=== PATIENT | male | born 1990 | race Caucasian/White ===

== ENCOUNTER 2020-06-03 15:33 | Emergency (ER) | payer BC ==
--- NOTE | 2020-06-03 15:57 | EDM.PDOC ---
ED HPI GENERAL MEDICAL PROBLEM - General Chief Complaint: General Stated Complaint: ABDOMINAL PAIN/APPENDICITIS? Time Seen by Provider: 06/03/20 15:41 Source of Information: Reports: Patient History Limitations: Reports: No Limitations - History of Present Illness INITIAL COMMENTS - FREE TEXT/NARRATIVE: Patient presents with RLQ abdominal pain that started about 6-7 hours ago. He hasn't eaten anything today. Hasn't really been hungry but about an hour ago did feel a little hungry. A little nausea but no vomiting. No watery diarrhea but has had 5 soft stools today which is abnormal compared to his normal 1/day. He felt fine yesterday. - Related Data Allergies Allergy/AdvReac Type Severity Reaction Status Date / Time cefaclor [From Ceclor] Allergy Hives Verified 10/05/14 10:38 Home Meds: Home Meds Aspirin [Halfprin] 81 mg PO DAILY 06/03/20 [History] Metoprolol Succinate 100 mg PO DAILY 06/03/20 [History] Warfarin [Coumadin] 10 mg PO ASDIRECTED 06/03/20 [History] Warfarin [Coumadin] 12.5 mg PO ASDIRECTED 06/03/20 [History] lisinopriL [Lisinopril] 10 mg PO DAILY 06/03/20 [History] Social & Family History - Living Situation & Occupation Living situation: Reports: with Significant Other Occupation: Employed ED ROS GENERAL - Review of Systems Review Of Systems: See Below Constitutional: Denies: Fever, Chills, Malaise, Weakness HEENT: Denies: Ear Pain, Throat Pain, Vision Change Respiratory: Denies: Shortness of Breath, Cough Cardiovascular: Denies: Chest Pain, Lightheadedness, Syncope GI/Abdominal: Reports: Abdominal Pain, Nausea. Denies: Black Stool, Bloody Stool, Constipation, Diarrhea, Vomiting : Denies: Dysuria, Flank Pain Musculoskeletal: Denies: Neck Pain, Shoulder Pain, Arm Pain, Back Pain, Hand Pain Skin: Denies: Cyanosis, Jaundice, Mottled, Pallor, Diaphoresis Neurological: Denies: Confusion, Dizziness, Seizure, Syncope, Trouble Speaking, Difficulty Walking Psychiatric: Denies: Agitation, Anxiety, Confusion ED EXAM, GI/ABD - Physical Exam Exam: See Below Exam Limited By: No Limitations General Appearance: Alert, WD/WN, No Apparent Distress Eyes: Bilateral: Normal Appearance, EOMI Ears: Normal External Exam, Hearing Grossly Normal Nose: Normal Inspection, No Blood Throat/Mouth: Normal Inspection, Normal Lips, Normal Voice, No Airway Compromise Head: Atraumatic, Normocephalic Neck: Normal Inspection, Full Range of Motion Respiratory/Chest: No Respiratory Distress, Lungs Clear, Normal Breath Sounds Cardiovascular: Regular Rate, Rhythm, 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 No: Distended, Rigid Back Exam: Normal Inspection, Full Range of Motion. No: CVA Tenderness (L), CVA Tenderness (R) Extremities: Normal Inspection, Normal Range of Motion Neurological: Alert, Oriented, Normal Cognition, No Motor/Sensory Deficits Psychiatric: Normal Affect, Normal Mood Skin Exam: Warm, Dry, Intact, Normal Color, No Rash Course - Vital Signs Last Recorded V/S: Last Vital Signs Temp 102 F H 06/03/20 18:56 Pulse 86 06/03/20 18:56 Resp 20 06/03/20 18:56 BP 123/57 L 06/03/20 18:56 Pulse Ox 98 06/03/20 18:56 - Orders/Labs/Meds Labs: Laboratory Tests 06/03/20 06/03/20 06/03/20 Range/Units 15:46 15:46 16:00 WBC 17.38 H (5.00-10.00) 10^3/uL RBC 5.22 (4.50-6.00) 10^6/uL Hgb 14.8 (13.0-17.0) g/dL Hct 44.3 (40.0-52.0) % MCV 84.9 (82.0-92.0) fL MCH 28.4 (27.0-31.0) pg MCHC 33.4 (32.0-36.0) g/dL RDW 13.8 (11.5-14.5) % Plt Count 318 (150-400) 10^3/uL MPV 10.6 H (7.4-10.4) fL Immature Gran % (Auto) 0.3 (0.0-5.0) % Neut % (Auto) 82.4 H (50.0-70.0) % Lymph % (Auto) 9.8 L (20.0-40.0) % [place] % (Auto) 7.0 (2.0-8.0) % Eos % (Auto) 0.2 L (1.0-3.0) % Baso % (Auto) 0.3 (0.0-1.0) % Neut # (Auto) 14.32 H (2.50-7.00) 10^3/uL Lymph # (Auto) 1.71 (1.00-4.00) 10^3/uL [place] # (Auto) 1.21 H (0.10-0.80) 10^3/uL Eos # (Auto) 0.03 L (0.10-0.30) 10^3/uL Baso # (Auto) 0.06 (0.00-0.10) 10^3/uL Immature Gran # (Auto) 0.05 (0.00-0.50) 10^3/uL Sodium 137 (136-145) mmol/L Potassium 4.2 (3.3-5.3) mmol/L Chloride 102 (98-115) mmol/L Carbon Dioxide 27.3 (21.0-32.0) mmol/L Anion Gap 11.9 (5-15) mmol/L BUN 10 (6-25) mg/dL Creatinine 0.67 (0.51-1.17) mg/dL Est Cr Clr Drug Dosing 155.97 mL/min Estimated GFR (MDRD) > 60 mL/min Glucose 105 H (75 - 99) mg/dL Calcium 8.7 (8.7-10.3) mg/dL Total Bilirubin 0.6 (0.2-1.0) mg/dL AST 32 (15-37) U/L ALT 28 (12-78) U/L Alkaline Phosphatase 67 (46-116) IU/L Total Protein 7.9 (6.4-8.2) g/dL Albumin 4.19 (3.00-4.80) g/dL Lipase 67 L (73-393) U/L Specimen Type Urinvoid Urine Color Yellow (YELLOW) Urine Appearance Clear (CLEAR) Urine pH 6.0 (5.0-9.0) Ur Specific [place] 1.020 (1.005-1.030) Urine Protein Negative (NEGATIVE) mg/dL Urine Glucose (UA) Negative (NEGATIVE) mg/dL Urine Ketones Trace H (NEGATIVE) mg/dL Urine Occult Blood Trace-intact H (NEGATIVE) Urine Nitrite Negative (NEGATIVE) Urine Bilirubin Negative (NEGATIVE) Urine Urobilinogen 0.2 (0.2-1.0) E.U./dL Ur Leukocyte Esterase Negative (NEGATIVE) Urine RBC 0-5 (0-5) /HPF Urine WBC 0-5 (0-5) /HPF Ur Epithelial Cells Rare /LPF Urine Bacteria Few (NONE TO FEW) /HPF Meds: Medications Discontinued Medications Generic Name Dose Route Start Last Admin Trade Name Gastonq PRN Reason Stop Dose Admin Acetaminophen 1,000 mg 06/03/20 18:35 06/03/20 18:36 Tylenol Extra Strength PO 06/03/20 18:36 1,000 mg ONETIME ONE Administration Acetaminophen Confirm 06/03/20 18:35 06/03/20 18:46 Tylenol Extra Strength Administered 06/03/20 18:36 Not Given Dose 1,000 mg .ROUTE .STK-MED ONE Hydromorphone HCl 0.5 mg 06/03/20 17:55 06/03/20 18:04 Dilaudid IVPUSH 06/03/20 17:56 0.5 mg ONETIME ONE Administration Sodium Chloride 50 mls @ 200 mls/hr 06/03/20 16:15 06/03/20 18:12 Normal Saline IV 200 mls/hr ASDIRECTED ELISABETH Administration Piperacillin Sod/Tazobactam 100 mls @ 200 mls/hr 06/03/20 17:30 06/03/20 18:08 Sod 4.5 gm/ Sodium Chloride IV 06/03/20 17:59 200 mls/hr ONETIME ONE Administration Sodium Chloride Confirm 06/03/20 17:45 06/03/20 18:10 Normal Saline Administered 06/03/20 17:46 Not Given Dose 50 mls @ as directed .ROUTE .STK-MED ONE Iopamidol 100 ml 06/03/20 16:10 06/03/20 16:23 Isovue-370 (76%) IV 06/03/20 16:11 100 ml ONETIME ONE Administration - Re-Assessments/Exams Free Text/Narrative Re-Assessment/Exam: 06/03/20 17:36 WBC 17.4, CT shows acute uncomplicated appendicitis. Patient would like to go to [facility]. I discussed case with surgeon Dr. Trujillo who accepted for transfer. He advised dose of Zosyn and agreed that patient could come by private vehicle if we feel appropriate. Discussed findings and treatment plan with patient and he wants his to drive him up. Will give dose of Zosyn now. Will give 0.5 mg Dilaudid now as well. Patient stable. Departure - Departure Time of Disposition: 08:17 Disposition: DC/Tfer to Acute Hospital 02 Condition: Good Clinical Impression: Acute appendicitis, uncomplicated - Discharge Information Instructions: Appendicitis, Adult, [id number] Referrals: Anastasiia Muniz PA-C [Primary Care Provider] - Forms: ED Department Discharge Additional Instructions: Go directly to [facility] without eating or drinking anything.
[2020-06-03] MEDS ORDERED: Iopamidol 755 Mg/ML 100 ML Bottle IV ONE (16:10)
[2020-06-03 16:15] LABS: ANION GAP 11.9 mmol/L (5-15); CHLORIDE,CL 102 mmol/L (98-115); SODIUM,NA 137 mmol/L (136-145)
[2020-06-03] MEDS: Sodium Chloride 0.9% 50 ML IV SCH ×2 (16:23→18:12)
--- NOTE | 2020-06-03 16:50 | CT ---
[id number] CT/CT Abdomen Pelvis W IV EXAM: CT Abdomen Pelvis W IV CLINICAL DATA: RIGHT LOWER QUADRANT PAIN. COMPARISON STUDY: None. FINDINGS: Lung bases are clear. Liver, spleen, gallbladder, pancreas, adrenal glands, and kidneys are unremarkable. The appendix is dilated with edema of the wall measuring up to 0.9 cm. There is surrounding periappendiceal fat stranding. No fluid collection, free air or free fluid. A few scattered colonic diverticula. No evidence of acute diverticulitis. No lymphadenopathy, free fluid, or pneumoperitoneum. Scattered changes of spondylosis the spine. No fracture or osseous lesion. IMPRESSION: Acute uncomplicated appendicitis. Dylan Jacobs DO 06/03/20 [id number] Thank you for allowing us to participate in the care of your patient.
[2020-06-03] MEDS ORDERED: Piperacillin/Tazobactam 4.5 GM in Sodium Chloride 0.9% 100 ML IV ONE (17:30)
[2020-06-03] MEDS ORDERED: Sodium Chloride 0.9% 50 ML ONE (17:45)
[2020-06-03] MEDS ORDERED: HYDROmorphone 1 MG/ML Syringe IVPUSH ONE (17:55)
[2020-06-03] MEDS ORDERED: Acetaminophen 500 MG Tab ONE (18:35)
[2020-06-03] MEDS ORDERED: Acetaminophen 500 MG Tab PO ONE (18:35)
== END 2020-06-03 19:00 ==
LOC: KA.ED 15:33
DX: K35.80 Unspecified acute appendicitis (principal); Z95.2 Presence of prosthetic heart valve; Z79.82 Long term (current) use of aspirin; Z79.899 Other long term (current) drug therapy; Z88.1 Allergy status to other antibiotic agents; Z79.01 Long term (current) use of anticoagulants
CPT/HCPCS: 74177; 80053; 81001; 83690; 85025; 96365; 96375; 99285; A9270; J1170; J2543; J7050; Q9967; 99284